=== PATIENT | female | born 1940 | race Caucasian/White ===

== ENCOUNTER 2024-12-05 09:00 | Inpatient (IN) ==
[2024-12-05] MEDS ORDERED: TYLENOL 325 MG TAB PO PRN (11:28)
[2024-12-05] MEDS ORDERED: LEVAQUIN PREMIX IV 500 MG 500 MG/100 ML BAG IV SCH (11:31)
[2024-12-05] MEDS: MIACALCIN INJ SC SCH (11:45)
[2024-12-05] MEDS ORDERED: CONSULT PHARMACY - POTASSIUM & MAGNESIUM XX SCH (12:00)
[2024-12-05] MEDS: APRESOLINE INJ 20 MG VIAL IVP PRN (12:32)
[2024-12-05] MEDS: VASOTEC INJ 2.5 MG VIAL IVP PRN (13:25)
[2024-12-05] MEDS ORDERED: NS 1,000 ML IV 1,000 ML ONE (14:01)
[2024-12-05] MEDS: VASOTEC INJ 2.5 MG VIAL ONE (14:17)
[2024-12-05] MEDS: NS 1,000 ML IV 1,000 ML IV SCH (14:17)
[2024-12-05] MEDS: MAGNESIUM SULFATE 1 GRAM/100 mL PREMIX 1 G/100 ML BAG IV NR (14:19)
[2024-12-05] MEDS: ZESTRIL TAB 20 MG PO SCH (14:44)
[2024-12-05] MEDS: K-RIDER 10 MEQ/100 ML WATER 10 MEQ/100 ML BAG IV NR (15:42)
[2024-12-05] MEDS: ZESTRIL TAB 20 MG ONE (15:50)
[2024-12-05] MEDS ORDERED: SENSIPAR PO SCH (21:00)
[2024-12-05] MEDS: ZOCOR TAB 20 MG PO SCH (22:48)
[2024-12-05] MEDS: COLACE CAP 100 MG PO SCH (22:49)
[2024-12-06] MEDS: TORADOL 15 MG VIAL IVP PRN (00:50)
[2024-12-06 05:43] LABS: BASOPHILS # (AUTO) 0.1 X10^3/uL (0.0-0.1); BASOPHILS % (AUTO) 0.7 % (0.2-1.0); EOSINOPHILS % (AUTO) 0.4 % (0.9-2.9); HEMATOCRIT 30.7 % (36.0-47.0); LYMPHOCYTES # (AUTO) 0.7 X10^3/uL (1.3-2.9); LYMPHOCYTES % (AUTO) 9.1 % (21.0-51.0); MEAN CORPUSCULAR HEMOGLOBIN 32.4 pg (27.0-34.0); MEAN CORPUSCULAR HGB CONC 35.7 g/dL (33.0-35.0); MEAN CORPUSCULAR VOLUME 90.8 fL (80.0-100.0); MEAN PLATELET VOLUME 8.9 fL (7.4-11.0); MONOCYTES # (AUTO) 0.6 x10^3/uL (0.3-0.8); MONOCYTES % (AUTO) 7.7 % (0.0-13.0); NEUTROPHILS % (AUTO) 82.1 % (42.0-75.0); PLATELET COUNT 214 X10^3/uL (150.0-450.0); RED BLOOD COUNT 3.38 X10^6/uL (3.5-5.4); WHITE BLOOD COUNT 7.4 X10^3/uL (3.6-10.0)
[2024-12-06 05:53] LABS: ALANINE AMINOTRANSFERASE 21 Units/L (12-78); ALBUMIN 2.5 g/dL (3.4-5.0); ALKALINE PHOSPHATASE 107 Units/L (46-116); ASPARTATE AMINO TRANSFERASE 13 Units/L (15-37); BLOOD UREA NITROGEN 24 mg/dL (7-18); CALCIUM 9.3 mg/dL (8.5-10.1); CARBON DIOXIDE 20.2 mmol/L (21-32); CHLORIDE 111 mmol/L (98-107); COR CA(FOR HYPOALB) 10.5 mg/dL (8.5-10.1); CREATININE 1.15 mg/dL (0.55-1.02); GLUCOSE 96 mg/dL (65-99); MAGNESIUM 2.1 mg/dL (2.0-2.9); POTASSIUM 3.8 mmol/L (3.5-5.1); SODIUM 142 mmol/L (136-145); TOTAL PROTEIN 4.9 g/dL (6.4-8.2); eGFR NON BLACK RACES 48 (>60)
[2024-12-06] MEDS: LOVENOX INJ 60 MG SYR SC SCH (08:26)
[2024-12-06] MEDS: LEVAQUIN PREMIX IV 750 MG 750 MG/150 ML BAG IV SCH (08:26)
[2024-12-06] MEDS: ZOLOFT PO SCH (08:27)
[2024-12-06] MEDS: NORVASC TAB 10 MG PO SCH (08:27)
[2024-12-06] MEDS: PEPCID 20 MG VIAL IVP SCH (08:28)
[2024-12-06] MEDS: TOPROL XL PO SCH (08:28)
[2024-12-06] MEDS: ZESTRIL TAB 20 MG ONE (10:08)
[2024-12-06] MEDS: SENSIPAR PO SCH (13:06)
[2024-12-06] MEDS ORDERED: MULTIHANCE INJ VIAL ONE (13:42)
--- NOTE | 2024-12-06 15:23 | MRI ---
EXAM: MRI BRAIN WITH AND WITHOUT CONTRAST HISTORY: AMS/POSSIBLE STROKE CONTRAST-MULTIHANCE 10CC INJECTED INTO LEFT AC ; COMPARISON: CT dated 12/03/2024. TECHNIQUE: Multiplanar multisequence MRI of the brain was performed with and without IV contrast. Informed written consent was obtained prior to contrast administration. FINDINGS: Multiple series degraded by patient motion artifact. No areas of restricted diffusion. No acute intracranial hemorrhage or extra-axial fluid collection. Moderate cerebral atrophy and chronic microvascular white matter disease. No enhancing intracranial abnormalities. No mass effect or midline shift. Major intracranial flow voids are preserved. Visualized paranasal sinuses are well-aerated. Bilateral mastoid effusions. IMPRESSION: 1. No acute intracranial abnormality. Negative for acute infarction or hemorrhage. 2. Moderate cerebral atrophy and chronic microvascular white matter disease. THIS IS AN ELECTRONICALLY VERIFIED FINAL REPORT 12/06/2024 3:20 PM - Electronically signed by Paulino Lucero MD
[2024-12-07] MEDS ORDERED: ZESTRIL TAB 20 MG ONE ×2 (07:24→20:05)
[2024-12-07 07:51] LABS: BASOPHILS # (AUTO) 0.1 X10^3/uL (0.0-0.1); BASOPHILS % (AUTO) 0.8 % (0.2-1.0); EOSINOPHILS # (AUTO) 0.1 x10^3/uL (0.0-0.2); EOSINOPHILS % (AUTO) 0.9 % (0.9-2.9); HEMATOCRIT 32.7 % (36.0-47.0); HEMOGLOBIN 11.6 g/dL (12.0-16.0); LYMPHOCYTES # (AUTO) 0.9 X10^3/uL (1.3-2.9); LYMPHOCYTES % (AUTO) 11.5 % (21.0-51.0); MEAN CORPUSCULAR HEMOGLOBIN 32.1 pg (27.0-34.0); MEAN CORPUSCULAR HGB CONC 35.5 g/dL (33.0-35.0); MEAN CORPUSCULAR VOLUME 90.4 fL (80.0-100.0); MEAN PLATELET VOLUME 8.9 fL (7.4-11.0); MONOCYTES # (AUTO) 0.5 x10^3/uL (0.3-0.8); MONOCYTES % (AUTO) 6.7 % (0.0-13.0); NEUTROPHILS # (AUTO) 6.2 x10^3/uL (2.2-4.8); NEUTROPHILS % (AUTO) 80.1 % (42.0-75.0); PLATELET COUNT 210 X10^3/uL (150.0-450.0); RED BLOOD COUNT 3.62 X10^6/uL (3.5-5.4); WHITE BLOOD COUNT 7.7 X10^3/uL (3.6-10.0)
[2024-12-07 08:03] LABS: ALANINE AMINOTRANSFERASE 22 Units/L (12-78); ALBUMIN 2.9 g/dL (3.4-5.0); ALKALINE PHOSPHATASE 114 Units/L (46-116); ASPARTATE AMINO TRANSFERASE 16 Units/L (15-37); BLOOD UREA NITROGEN 19 mg/dL (7-18); CALCIUM 8.6 mg/dL (8.5-10.1); CARBON DIOXIDE 18.8 mmol/L (21-32); CHLORIDE 114 mmol/L (98-107); COR CA(FOR HYPOALB) 9.5 mg/dL (8.5-10.1); CREATININE 0.98 mg/dL (0.55-1.02); GLUCOSE 91 mg/dL (65-99); POTASSIUM 3.5 mmol/L (3.5-5.1); SODIUM 145 mmol/L (136-145); TOTAL PROTEIN 5.4 g/dL (6.4-8.2); eGFR NON BLACK RACES 58 (>60)
[2024-12-07] MEDS: K-RIDER 10 MEQ/100 ML WATER 10 MEQ/100 ML BAG IV SCH (09:04)
[2024-12-07] MEDS: CONSULT PHARMACY - POTASSIUM & MAGNESIUM XX SCH (10:18)
[2024-12-07] MEDS: ROCEPHIN VIAL 1 GRAM 1 G in NS 100 ML IV 100 ML IV SCH (11:20)
[2024-12-07] MEDS: MAGNESIUM SULFATE 1 GRAM/100 mL PREMIX 1 G/100 ML BAG IV SCH (13:38)
--- NOTE | 2024-12-07 14:31 | PCM.PROG ---
Progress Note Progress Note for Day of Date of Exam: 12/07/24 Subjective Subjective: Patient seen at bedside, no acute events overnight. She is resting this morning. She did not eat much breakfast. Her BP has been elevated. She did take PO medications with apple sauce. MRI-brain did not show any acute changes. Her calcium level is normal. Reviewed tele-[place] recommendations. Labs/imaging reviewed: -WBC 7.7 Hgb11.6 Plt 210 K 3.5 Cr 0.98 Na 145 -MRI-brain reviewed -AIT UTI panel pending Plan: Continue current treatment. Appreciate [place] recommendations. Continue sensipar. Continue hydration. Replace electrolytes as per protocol. Continue IV Rocephin, f/u pending results. Monitor AM labs/imaging. Past Medical Family Social History Allergies: Allergies codeine Allergy (Verified 11/07/23 09:26) NAUSEA patient states it makes her sick Vital Signs and I&O's Vital Signs: Vital Signs Temperature 99 F Temperature 98.3 F Pulse Rate [Left Apical] 87 Pulse Rate [Left Apical] 88 Respiratory Rate 18 Respiratory Rate 18 Blood Pressure [Right Arm] 192/85 Blood Pressure [Right Arm] 171/85 Blood Pressure [Right Arm] 173/83 Blood Pressure [Left Arm] 160/78 Blood Pressure [Left Arm] 164/75 O2 Sat by Pulse Oximetry 96 O2 Sat by Pulse Oximetry 95 Intake and Output: Intake & Output 12/04/24 12/05/24 12/06/24 12/07/24 23:59 23:59 23:59 23:59 Intake Total 1748 / 1748 2286 / 2286 673 / 673 Balance 1748 / 1748 2286 / 2286 673 / 673 Physical Exam Oriented: Unable to test Throat: Normal Respiratory: Generalized and Diminished Cardiovascular: Normal Auscultation: Bowel Sounds: Normal Palpation: Normal Tenderness: Normal Skin: Decreased [place]urgur Musculoskeletal: Normal Psychiatric: Normal Mood Description: Calm Affect: Normal Speech Pattern: Delayed Laboratory and Diagnostics 12/07/24 07:42 12/07/24 07:42 Labs: Laboratory WBC 7.7 X10^3/uL (3.6-10.0) 12/07/24 07:42 RBC 3.62 X10^6/uL (3.5-5.4) 12/07/24 07:42 Hgb 11.6 g/dL (12.0-16.0) L 12/07/24 07:42 Hct 32.7 % (36.0-47.0) L 12/07/24 07:42 MCV 90.4 fL (80.0-100.0) 12/07/24 07:42 MCH 32.1 pg (27.0-34.0) 12/07/24 07:42 MCHC 35.5 g/dL (33.0-35.0) H 12/07/24 07:42 RDW 13.0 % (11.6-16.5) 12/07/24 07:42 Plt Count 210 X10^3/uL (150.0-450.0) 12/07/24 07:42 MPV 8.9 fL (7.4-11.0) 12/07/24 07:42 Neut % (Auto) 80.1 % (42.0-75.0) H 12/07/24 07:42 Lymph % (Auto) 11.5 % (21.0-51.0) L 12/07/24 07:42 [place] % (Auto) 6.7 % (0.0-13.0) 12/07/24 07:42 Eos % (Auto) 0.9 % (0.9-2.9) 12/07/24 07:42 Baso % (Auto) 0.8 % (0.2-1.0) 12/07/24 07:42 Neut # (Auto) 6.2 x10^3/uL (2.2-4.8) H 12/07/24 07:42 Lymph # (Auto) 0.9 X10^3/uL (1.3-2.9) L 12/07/24 07:42 [place] # (Auto) 0.5 x10^3/uL (0.3-0.8) 12/07/24 07:42 Eos # (Auto) 0.1 x10^3/uL (0.0-0.2) 12/07/24 07:42 Baso # (Auto) 0.1 X10^3/uL (0.0-0.1) 12/07/24 07:42 Absolute Nucleated RBC 0.0 /100WBC 12/07/24 07:42 Sodium 145 mmol/L (136-145) 12/07/24 07:42 Corrected Sodium TNP 12/07/24 07:42 Potassium 3.5 mmol/L (3.5-5.1) 12/07/24 07:42 Chloride 114 mmol/L (98-107) H 12/07/24 07:42 Carbon Dioxide 18.8 mmol/L (21-32) L 12/07/24 07:42 BUN 19 mg/dL (7-18) H 12/07/24 07:42 Creatinine 0.98 mg/dL (0.55-1.02) 12/07/24 07:42 Est GFR (MDRD) Af Amer > 60 (>60) 12/07/24 07:42 Est GFR (MDRD) Non-Af 58 (>60) L 12/07/24 07:42 Glucose 91 mg/dL (65-99) 12/07/24 07:42 Calcium 8.6 mg/dL (8.5-10.1) 12/07/24 07:42 Corrected Calcium 9.5 mg/dL (8.5-10.1) 12/07/24 07:42 Phosphorus 1.7 mg/dL (2.6-4.7) L 12/07/24 07:42 Magnesium 1.8 mg/dL (2.0-2.9) L 12/07/24 07:42 Total Bilirubin 0.30 mg/dL (0.2-1.0) 12/07/24 07:42 AST 16 Units/L (15-37) 12/07/24 07:42 ALT 22 Units/L (12-78) 12/07/24 07:42 Alkaline Phosphatase 114 Units/L (46-116) 12/07/24 07:42 Total Protein 5.4 g/dL (6.4-8.2) L 12/07/24 07:42 Albumin 2.9 g/dL (3.4-5.0) L 12/07/24 07:42 Globulin 2.5 g/dL (2.5-4.5) 12/07/24 07:42 Albumin/Globulin Ratio 1.2 Ratio (1.1-2.1) 12/07/24 07:42 Plan (1) Hypercalcemia: Status: Acute (2) Generalized weakness: Status: Acute (3) Vascular dementia: Status: Chronic Qualifiers: Dementia severity: unspecified severity Dementia behavioral or psychological symptom: without behavioral, psychotic, or mood disturbance or anxiety Qualified Code(s): F01.50 - Vascular dementia, unspecified severity, without behavioral disturbance, psychotic disturbance, mood disturbance, and anxiety (4) AMS (altered mental status): Status: Acute Qualifiers: Altered mental status type: transient alteration of awareness Qualified Code(s): R40.4 - Transient alteration of awareness
[2024-12-07] MEDS ORDERED: BUTT CREAM (COMPOUND) TOP PRN (14:33)
[2024-12-07] MEDS: ZESTRIL TAB 20 MG PO SCH (21:08)
[2024-12-08 05:07] LABS: HEMATOCRIT 30.9 % (36.0-47.0); HEMOGLOBIN 10.9 g/dL (12.0-16.0); MEAN CORPUSCULAR HEMOGLOBIN 32.3 pg (27.0-34.0); RED BLOOD COUNT 3.38 X10^6/uL (3.5-5.4)
[2024-12-08 05:16] LABS: BASOPHILS % (AUTO) 0.4 % (0.2-1.0); EOSINOPHILS # (AUTO) 0.1 x10^3/uL (0.0-0.2); EOSINOPHILS % (AUTO) 2.1 % (0.9-2.9); LYMPHOCYTES # (AUTO) 0.8 X10^3/uL (1.3-2.9); LYMPHOCYTES % (AUTO) 11.3 % (21.0-51.0); MEAN CORPUSCULAR HGB CONC 35.3 g/dL (33.0-35.0); MEAN CORPUSCULAR VOLUME 91.4 fL (80.0-100.0); MEAN PLATELET VOLUME 9.5 fL (7.4-11.0); MONOCYTES # (AUTO) 0.5 x10^3/uL (0.3-0.8); MONOCYTES % (AUTO) 7.2 % (0.0-13.0); NEUTROPHILS # (AUTO) 5.5 x10^3/uL (2.2-4.8); PLATELET COUNT 199 X10^3/uL (150.0-450.0)
[2024-12-08 05:19] LABS: ALANINE AMINOTRANSFERASE 19 Units/L (12-78); ALBUMIN 2.6 g/dL (3.4-5.0); ALKALINE PHOSPHATASE 100 Units/L (46-116); ASPARTATE AMINO TRANSFERASE 15 Units/L (15-37); BLOOD UREA NITROGEN 17 mg/dL (7-18); CALCIUM 7.8 mg/dL (8.5-10.1); COR CA(FOR HYPOALB) 8.9 mg/dL (8.5-10.1); CREATININE 0.88 mg/dL (0.55-1.02); GLUCOSE 83 mg/dL (65-99); MAGNESIUM 2.2 mg/dL (2.0-2.9); PHOSPHORUS 1.8 mg/dL (2.6-4.7); POTASSIUM 3.5 mmol/L (3.5-5.1); SODIUM 145 mmol/L (136-145); eGFR NON BLACK RACES > 60 (>60)
[2024-12-08 05:24] LABS: CHLORIDE 115 mmol/L (98-107)
[2024-12-08] MEDS ORDERED: ZESTRIL TAB 20 MG ONE ×2 (08:26→19:24)
--- NOTE | 2024-12-08 11:46 | PCM.PROG ---
Progress Note Progress Note for Day of Date of Exam: 12/08/24 Subjective Subjective: Patient seen at bedside, no acute events overnight. She is feeling better. She has not been eating much. Discussed with patient about eating. She is willing to try Ensure. Her calcium level is normal. Labs/imaging reviewed: -WBC 7 Hgb 10.9 Plt 199 K 3.5 Cr 0.88 Na 145 Chloride 115 -MRI-brain reviewed -AIT UTI panel pending Plan: Continue current treatment. Continue sensipar. DC fluids. Add Ensure. Replace electrolytes as per protocol. Continue IV Rocephin, f/u pending results. Monitor AM labs/imaging. Past Medical Family Social History Allergies: Allergies codeine Allergy (Verified 11/07/23 09:26) NAUSEA patient states it makes her sick Vital Signs and I&O's Vital Signs: Vital Signs Temperature 98.1 F Pulse Rate [Left Apical] 75 Respiratory Rate 18 Blood Pressure [Right Arm] 128/69 O2 Sat by Pulse Oximetry 95 Intake and Output: Intake & Output 12/05/24 12/06/24 12/07/24 12/08/24 23:59 23:59 23:59 23:59 Intake Total 1748 / 1748 2286 / 2286 1159 / 1159 864 / 864 Balance 1748 / 1748 2286 / 2286 1159 / 1159 864 / 864 Physical Exam Oriented: Normal Throat: Normal Respiratory: Generalized and Diminished Cardiovascular: Normal Auscultation: Bowel Sounds: Normal Palpation: Normal Tenderness: Normal Skin: Decreased [place]urgur Musculoskeletal: Normal Psychiatric: Normal Mood Description: Calm Affect: Normal Speech Pattern: Delayed Laboratory and Diagnostics 12/08/24 04:35 12/08/24 04:35 Labs: Laboratory WBC 7.0 X10^3/uL (3.6-10.0) 12/08/24 04:35 RBC 3.38 X10^6/uL (3.5-5.4) L 12/08/24 04:35 Hgb 10.9 g/dL (12.0-16.0) L 12/08/24 04:35 Hct 30.9 % (36.0-47.0) L 12/08/24 04:35 MCV 91.4 fL (80.0-100.0) 12/08/24 04:35 MCH 32.3 pg (27.0-34.0) 12/08/24 04:35 MCHC 35.3 g/dL (33.0-35.0) H 12/08/24 04:35 RDW 13.0 % (11.6-16.5) 12/08/24 04:35 Plt Count 199 X10^3/uL (150.0-450.0) 12/08/24 04:35 MPV 9.5 fL (7.4-11.0) 12/08/24 04:35 Neut % (Auto) 79.0 % (42.0-75.0) H 12/08/24 04:35 Lymph % (Auto) 11.3 % (21.0-51.0) L 12/08/24 04:35 [place] % (Auto) 7.2 % (0.0-13.0) 12/08/24 04:35 Eos % (Auto) 2.1 % (0.9-2.9) 12/08/24 04:35 Baso % (Auto) 0.4 % (0.2-1.0) 12/08/24 04:35 Neut # (Auto) 5.5 x10^3/uL (2.2-4.8) H 12/08/24 04:35 Lymph # (Auto) 0.8 X10^3/uL (1.3-2.9) L 12/08/24 04:35 [place] # (Auto) 0.5 x10^3/uL (0.3-0.8) 12/08/24 04:35 Eos # (Auto) 0.1 x10^3/uL (0.0-0.2) 12/08/24 04:35 Baso # (Auto) 0.0 X10^3/uL (0.0-0.1) 12/08/24 04:35 Absolute Nucleated RBC 0.1 /100WBC 12/08/24 04:35 Sodium 145 mmol/L (136-145) 12/08/24 04:35 Corrected Sodium TNP 12/08/24 04:35 Potassium 3.5 mmol/L (3.5-5.1) 12/08/24 04:35 Chloride 115 mmol/L (98-107) H* 12/08/24 04:35 Carbon Dioxide 17.0 mmol/L (21-32) L 12/08/24 04:35 BUN 17 mg/dL (7-18) 12/08/24 04:35 Creatinine 0.88 mg/dL (0.55-1.02) 12/08/24 04:35 Est GFR (MDRD) Af Amer > 60 (>60) 12/08/24 04:35 Est GFR (MDRD) Non-Af > 60 (>60) 12/08/24 04:35 Glucose 83 mg/dL (65-99) 12/08/24 04:35 Calcium 7.8 mg/dL (8.5-10.1) L 12/08/24 04:35 Corrected Calcium 8.9 mg/dL (8.5-10.1) 12/08/24 04:35 Phosphorus 1.8 mg/dL (2.6-4.7) L 12/08/24 04:35 Magnesium 2.2 mg/dL (2.0-2.9) 12/08/24 04:35 Total Bilirubin 0.30 mg/dL (0.2-1.0) 12/08/24 04:35 AST 15 Units/L (15-37) 12/08/24 04:35 ALT 19 Units/L (12-78) 12/08/24 04:35 Alkaline Phosphatase 100 Units/L (46-116) 12/08/24 04:35 Total Protein 5.0 g/dL (6.4-8.2) L 12/08/24 04:35 Albumin 2.6 g/dL (3.4-5.0) L 12/08/24 04:35 Globulin 2.4 g/dL (2.5-4.5) L 12/08/24 04:35 Albumin/Globulin Ratio 1.1 Ratio (1.1-2.1) 12/08/24 04:35 Plan (1) Hypercalcemia: Status: Acute (2) Generalized weakness: Status: Acute (3) Vascular dementia: Status: Chronic Qualifiers: Dementia behavioral or psychological symptom: without behavioral, psychotic, or mood disturbance or anxiety Dementia severity: unspecified severity Qualified Code(s): F01.50 - Vascular dementia, unspecified severity, without behavioral disturbance, psychotic disturbance, mood disturbance, and anxiety (4) AMS (altered mental status): Status: Acute Qualifiers: Altered mental status type: transient alteration of awareness Qualified Code(s): R40.4 - Transient alteration of awareness
[2024-12-09 05:57] LABS: BASOPHILS % (AUTO) 0.6 % (0.2-1.0); EOSINOPHILS # (AUTO) 0.2 x10^3/uL (0.0-0.2); EOSINOPHILS % (AUTO) 4.6 % (0.9-2.9); HEMATOCRIT 29.9 % (36.0-47.0); HEMOGLOBIN 10.6 g/dL (12.0-16.0); LYMPHOCYTES # (AUTO) 0.9 X10^3/uL (1.3-2.9); MEAN CORPUSCULAR HGB CONC 35.2 g/dL (33.0-35.0); MEAN CORPUSCULAR VOLUME 90.9 fL (80.0-100.0); MEAN PLATELET VOLUME 9.7 fL (7.4-11.0); MONOCYTES # (AUTO) 0.4 x10^3/uL (0.3-0.8); MONOCYTES % (AUTO) 7.9 % (0.0-13.0); NEUTROPHILS # (AUTO) 3.8 x10^3/uL (2.2-4.8); NEUTROPHILS % (AUTO) 70.9 % (42.0-75.0); PLATELET COUNT 180 X10^3/uL (150.0-450.0); RED BLOOD COUNT 3.29 X10^6/uL (3.5-5.4); RED CELL DISTRIBUTION WIDTH 12.9 % (11.6-16.5); WHITE BLOOD COUNT 5.4 X10^3/uL (3.6-10.0)
[2024-12-09 06:07] LABS: ALANINE AMINOTRANSFERASE 17 Units/L (12-78); ALBUMIN 2.5 g/dL (3.4-5.0); ALKALINE PHOSPHATASE 96 Units/L (46-116); ASPARTATE AMINO TRANSFERASE 15 Units/L (15-37); BLOOD UREA NITROGEN 15 mg/dL (7-18); CALCIUM 7.5 mg/dL (8.5-10.1); CARBON DIOXIDE 23.6 mmol/L (21-32); CHLORIDE 113 mmol/L (98-107); COR CA(FOR HYPOALB) 8.7 mg/dL (8.5-10.1); CREATININE 0.83 mg/dL (0.55-1.02); GLUCOSE 86 mg/dL (65-99); MAGNESIUM 1.9 mg/dL (2.0-2.9); POTASSIUM 3.2 mmol/L (3.5-5.1); SODIUM 142 mmol/L (136-145); TOTAL PROTEIN 4.8 g/dL (6.4-8.2); eGFR NON BLACK RACES > 60 (>60)
[2024-12-09] MEDS ORDERED: CONSULT PHARMACY - POTASSIUM & MAGNESIUM XX SCH ×2 (07:00→08:00)
[2024-12-09] MEDS ORDERED: ZESTRIL TAB 20 MG ONE ×2 (09:33→19:34)
[2024-12-09] MEDS: MAG-OX TAB PO SCH (09:39)
[2024-12-09] MEDS: POTASSIUM CHLORIDE LIQ PO SCH (09:40)
[2024-12-09] MEDS: VORICONAZOLE 400 MG in NS 100 ML IV 100 ML IV SCH (13:49)
[2024-12-09] MEDS: POTASSIUM PHOSPHATE IV ONE (16:17)
[2024-12-09] MEDS: NS IV ONE (16:17)
[2024-12-10] MEDS: NS 250 ML IV 250 ML IV PRN (05:10)
[2024-12-10 05:55] LABS: BASOPHILS % (AUTO) 0.3 % (0.2-1.0); EOSINOPHILS # (AUTO) 0.2 x10^3/uL (0.0-0.2); EOSINOPHILS % (AUTO) 2.8 % (0.9-2.9); HEMATOCRIT 34.2 % (36.0-47.0); HEMOGLOBIN 12.2 g/dL (12.0-16.0); LYMPHOCYTES % (AUTO) 15.4 % (21.0-51.0); MEAN CORPUSCULAR HEMOGLOBIN 32.2 pg (27.0-34.0); MEAN CORPUSCULAR HGB CONC 35.6 g/dL (33.0-35.0); MEAN CORPUSCULAR VOLUME 90.7 fL (80.0-100.0); MEAN PLATELET VOLUME 9.6 fL (7.4-11.0); MONOCYTES # (AUTO) 0.6 x10^3/uL (0.3-0.8); MONOCYTES % (AUTO) 10.1 % (0.0-13.0); NEUTROPHILS # (AUTO) 4.5 x10^3/uL (2.2-4.8); NEUTROPHILS % (AUTO) 71.4 % (42.0-75.0); PLATELET COUNT 189 X10^3/uL (150.0-450.0); RED BLOOD COUNT 3.77 X10^6/uL (3.5-5.4); WHITE BLOOD COUNT 6.4 X10^3/uL (3.6-10.0)
[2024-12-10 06:03] LABS: ALANINE AMINOTRANSFERASE 21 Units/L (12-78); ALKALINE PHOSPHATASE 114 Units/L (46-116); ASPARTATE AMINO TRANSFERASE 17 Units/L (15-37); BLOOD UREA NITROGEN 10 mg/dL (7-18); CALCIUM 7.5 mg/dL (8.5-10.1); CARBON DIOXIDE 19.9 mmol/L (21-32); CHLORIDE 110 mmol/L (98-107); COR CA(FOR HYPOALB) 8.3 mg/dL (8.5-10.1); CREATININE 0.76 mg/dL (0.55-1.02); GLUCOSE 85 mg/dL (65-99); MAGNESIUM 1.8 mg/dL (2.0-2.9); POTASSIUM 4.3 mmol/L (3.5-5.1); SODIUM 142 mmol/L (136-145); TOTAL PROTEIN 5.6 g/dL (6.4-8.2); eGFR NON BLACK RACES > 60 (>60)
[2024-12-10] MEDS ORDERED: CONSULT PHARMACY - POTASSIUM & MAGNESIUM XX SCH (07:00)
[2024-12-10 08:07] VITALS: BP 158/74; PULSE 76; RESP 18; TEMP 98.2; O2SAT 96
[2024-12-10] MEDS ORDERED: ZESTRIL TAB 20 MG ONE (08:31)
--- NOTE | 2024-12-10 08:56 | PCM.PROG ---
Progress Note Progress Note for Day of Date of Exam: 12/09/24 Subjective Subjective: Patient seen at bedside, no acute events overnight. She is feeling better. She is sitting up in the recliner. Her appetite has improved. She did drink Ensure. She also worked with PT/OT this morning. CM working on rehab placement. Labs/imaging reviewed: -WBC 5.4 Hgb 10.6 Plt 180 K 3.2 Cr 0.83 Mag 1.9 -MRI-brain reviewed -AIT UTI : Rosalee Krusei Plan: Add voriconazole for UTI. Replace electrolytes as per protocol. Replace phosphorus. Continue sensipar, monitor Ca levels. Continue home medications. PT/OT as tolerated. CM working on placement to [facility]. Patient will need outpatient follow up with Endocrine. Monitor AM labs/imaging. Past Medical Family Social History Allergies: Allergies codeine Allergy (Verified 11/07/23 09:26) NAUSEA patient states it makes her sick Vital Signs and I&O's Vital Signs: Vital Signs Temperature 98.2 F Temperature 97.7 F Pulse Rate [Left Apical] 76 Pulse Rate [Left Apical] 73 Respiratory Rate 18 Respiratory Rate 17 Blood Pressure [Right Arm] 158/74 Blood Pressure [Right Arm] 152/74 O2 Sat by Pulse Oximetry 96 O2 Sat by Pulse Oximetry 97 Intake and Output: Intake & Output 12/07/24 12/08/24 12/09/24 12/10/24 23:59 23:59 23:59 23:59 Intake Total 1159 / 1159 1341 / 1341 2159 / 2159 502 / 502 Balance 1159 / 1159 1341 / 1341 2159 / 2159 502 / 502 Physical Exam Oriented: Normal Throat: Normal Respiratory: Generalized and Diminished Cardiovascular: Normal Auscultation: Bowel Sounds: Normal Palpation: Normal Tenderness: Normal Skin: Decreased [place] Musculoskeletal: Normal Psychiatric: Normal Mood Description: Calm Affect: Normal Speech Pattern: Clear and Delayed Laboratory and Diagnostics 12/10/24 05:10 12/10/24 05:10 Labs: Laboratory WBC 6.4 X10^3/uL (3.6-10.0) 12/10/24 05:10 RBC 3.77 X10^6/uL (3.5-5.4) 12/10/24 05:10 Hgb 12.2 g/dL (12.0-16.0) 12/10/24 05:10 Hct 34.2 % (36.0-47.0) L 12/10/24 05:10 MCV 90.7 fL (80.0-100.0) 12/10/24 05:10 MCH 32.2 pg (27.0-34.0) 12/10/24 05:10 MCHC 35.6 g/dL (33.0-35.0) H 12/10/24 05:10 RDW 13.0 % (11.6-16.5) 12/10/24 05:10 Plt Count 189 X10^3/uL (150.0-450.0) 12/10/24 05:10 MPV 9.6 fL (7.4-11.0) 12/10/24 05:10 Neut % (Auto) 71.4 % (42.0-75.0) 12/10/24 05:10 Lymph % (Auto) 15.4 % (21.0-51.0) L 12/10/24 05:10 [place] % (Auto) 10.1 % (0.0-13.0) 12/10/24 05:10 Eos % (Auto) 2.8 % (0.9-2.9) 12/10/24 05:10 Baso % (Auto) 0.3 % (0.2-1.0) 12/10/24 05:10 Neut # (Auto) 4.5 x10^3/uL (2.2-4.8) 12/10/24 05:10 Lymph # (Auto) 1.0 X10^3/uL (1.3-2.9) L 12/10/24 05:10 [place] # (Auto) 0.6 x10^3/uL (0.3-0.8) 12/10/24 05:10 Eos # (Auto) 0.2 x10^3/uL (0.0-0.2) 12/10/24 05:10 Baso # (Auto) 0.0 X10^3/uL (0.0-0.1) 12/10/24 05:10 Absolute Nucleated RBC 0.1 /100WBC 12/10/24 05:10 Sodium 142 mmol/L (136-145) 12/10/24 05:10 Corrected Sodium TNP 12/10/24 05:10 Potassium 4.3 mmol/L (3.5-5.1) 12/10/24 05:10 Chloride 110 mmol/L (98-107) H 12/10/24 05:10 Carbon Dioxide 19.9 mmol/L (21-32) L 12/10/24 05:10 BUN 10 mg/dL (7-18) 12/10/24 05:10 Creatinine 0.76 mg/dL (0.55-1.02) 12/10/24 05:10 Est GFR (MDRD) Af Amer > 60 (>60) 12/10/24 05:10 Est GFR (MDRD) Non-Af > 60 (>60) 12/10/24 05:10 Glucose 85 mg/dL (65-99) 12/10/24 05:10 POC Glucose (mg/dL) 113 mg/dL (65-99) H 12/09/24 12:22 Calcium 7.5 mg/dL (8.5-10.1) L 12/10/24 05:10 Corrected Calcium 8.3 mg/dL (8.5-10.1) L 12/10/24 05:10 Phosphorus 1.8 mg/dL (2.6-4.7) L 12/08/24 04:35 Magnesium 1.8 mg/dL (2.0-2.9) L 12/10/24 05:10 Total Bilirubin 0.30 mg/dL (0.2-1.0) 12/10/24 05:10 AST 17 Units/L (15-37) 12/10/24 05:10 ALT 21 Units/L (12-78) 12/10/24 05:10 Alkaline Phosphatase 114 Units/L (46-116) 12/10/24 05:10 Total Protein 5.6 g/dL (6.4-8.2) L 12/10/24 05:10 Albumin 3.0 g/dL (3.4-5.0) L 12/10/24 05:10 Globulin 2.6 g/dL (2.5-4.5) 12/10/24 05:10 Albumin/Globulin Ratio 1.2 Ratio (1.1-2.1) 12/10/24 05:10 Infect Dis PCR Plus See scanned report 12/05/24 16:45 Plan (1) Hypercalcemia: Status: Acute (2) Generalized weakness: Status: Acute (3) Vascular dementia: Status: Chronic Qualifiers: Dementia behavioral or psychological symptom: without behavioral, psychotic, or mood disturbance or anxiety Dementia severity: unspecified severity Qualified Code(s): F01.50 - Vascular dementia, unspecified severity, without behavioral disturbance, psychotic disturbance, mood disturbance, and anxiety (4) AMS (altered mental status): Status: Acute Qualifiers: Altered mental status type: transient alteration of awareness Qualified Code(s): R40.4 - Transient alteration of awareness (5) Hyperparathyroidism: Status: Acute (6) Hypomagnesemia: Status: Acute (7) Hypophosphatemia: Status: Acute
[2024-12-10] MEDS: VORICONAZOLE 200 MG in NS 50 ML IV 50 ML IV SCH (09:37)
[2024-12-10] MEDS: MAG-OX TAB PO SCH (09:38)
[2024-12-11] MEDS ORDERED: SENSIPAR PO SCH (09:00)
--- NOTE | 2024-12-11 16:31 | PCM.PROG ---
Progress Note Progress Note for Day of Date of Exam: 12/06/24 Subjective Subjective: Patient resting in bed. No acute events overnight. She is more alert and is tolerating a little po intake compared to before. Labs/imaging reviewed: - WBC 7.4, hemoglobin 11, platelets 214, sodium 142, potassium 3.8, creatinine 1.15, glucose 96, calcium 9.3, corrected calcium 10.5. -MRI-brain pending -AIT UTI : pending Plan: Continue sensipar, monitor Ca levels when are gradually decreasing. Continue Rocephin pending cultures. Continue home medications. PT/OT as tolerated. Otherwise continue current treatment plan. Monitor AM labs/imaging. Past Medical Family Social History Allergies: Allergies codeine Allergy (Verified 11/07/23 09:26) NAUSEA patient states it makes her sick Review of Systems ROS changes noted: see HPI Vital Signs and I&O's Intake and Output: Intake & Output 12/08/24 12/09/24 12/10/24 12/11/24 23:59 23:59 23:59 23:59 Intake Total 1341 / 1341 2159 / 2159 502 / 502 Balance 1341 / 1341 2159 / 2159 502 / 502 Physical Exam Oriented: Normal Throat: Normal Respiratory: Generalized and Diminished Cardiovascular: Normal Auscultation: Bowel Sounds: Normal Tenderness: Normal Skin: Decreased [place] Musculoskeletal: Normal Psychiatric: Normal Mood Description: Calm Affect: Normal Speech Pattern: Clear and Delayed Laboratory and Diagnostics 12/10/24 05:10 12/10/24 05:10 Labs: Laboratory WBC 6.4 X10^3/uL (3.6-10.0) 12/10/24 05:10 RBC 3.77 X10^6/uL (3.5-5.4) 12/10/24 05:10 Hgb 12.2 g/dL (12.0-16.0) 12/10/24 05:10 Hct 34.2 % (36.0-47.0) L 12/10/24 05:10 MCV 90.7 fL (80.0-100.0) 12/10/24 05:10 MCH 32.2 pg (27.0-34.0) 12/10/24 05:10 MCHC 35.6 g/dL (33.0-35.0) H 12/10/24 05:10 RDW 13.0 % (11.6-16.5) 12/10/24 05:10 Plt Count 189 X10^3/uL (150.0-450.0) 12/10/24 05:10 MPV 9.6 fL (7.4-11.0) 12/10/24 05:10 Neut % (Auto) 71.4 % (42.0-75.0) 12/10/24 05:10 Lymph % (Auto) 15.4 % (21.0-51.0) L 12/10/24 05:10 [place] % (Auto) 10.1 % (0.0-13.0) 12/10/24 05:10 Eos % (Auto) 2.8 % (0.9-2.9) 12/10/24 05:10 Baso % (Auto) 0.3 % (0.2-1.0) 12/10/24 05:10 Neut # (Auto) 4.5 x10^3/uL (2.2-4.8) 12/10/24 05:10 Lymph # (Auto) 1.0 X10^3/uL (1.3-2.9) L 12/10/24 05:10 [place] # (Auto) 0.6 x10^3/uL (0.3-0.8) 12/10/24 05:10 Eos # (Auto) 0.2 x10^3/uL (0.0-0.2) 12/10/24 05:10 Baso # (Auto) 0.0 X10^3/uL (0.0-0.1) 12/10/24 05:10 Absolute Nucleated RBC 0.1 /100WBC 12/10/24 05:10 Sodium 142 mmol/L (136-145) 12/10/24 05:10 Corrected Sodium TNP 12/10/24 05:10 Potassium 4.3 mmol/L (3.5-5.1) 12/10/24 05:10 Chloride 110 mmol/L (98-107) H 12/10/24 05:10 Carbon Dioxide 19.9 mmol/L (21-32) L 12/10/24 05:10 BUN 10 mg/dL (7-18) 12/10/24 05:10 Creatinine 0.76 mg/dL (0.55-1.02) 12/10/24 05:10 Est GFR (MDRD) Af Amer > 60 (>60) 12/10/24 05:10 Est GFR (MDRD) Non-Af > 60 (>60) 12/10/24 05:10 Glucose 85 mg/dL (65-99) 12/10/24 05:10 POC Glucose (mg/dL) 113 mg/dL (65-99) H 12/09/24 12:22 Calcium 7.5 mg/dL (8.5-10.1) L 12/10/24 05:10 Corrected Calcium 8.3 mg/dL (8.5-10.1) L 12/10/24 05:10 Phosphorus 2.8 mg/dL (2.6-4.7) 12/10/24 05:10 Magnesium 1.8 mg/dL (2.0-2.9) L 12/10/24 05:10 Total Bilirubin 0.30 mg/dL (0.2-1.0) 12/10/24 05:10 AST 17 Units/L (15-37) 12/10/24 05:10 ALT 21 Units/L (12-78) 12/10/24 05:10 Alkaline Phosphatase 114 Units/L (46-116) 12/10/24 05:10 Total Protein 5.6 g/dL (6.4-8.2) L 12/10/24 05:10 Albumin 3.0 g/dL (3.4-5.0) L 12/10/24 05:10 Globulin 2.6 g/dL (2.5-4.5) 12/10/24 05:10 Albumin/Globulin Ratio 1.2 Ratio (1.1-2.1) 12/10/24 05:10 Infect Dis PCR Plus See scanned report 12/05/24 16:45 Plan (1) Hypercalcemia: Status: Acute (2) Generalized weakness: Status: Acute (3) Vascular dementia: Status: Chronic Qualifiers: Dementia severity: unspecified severity Dementia behavioral or psychological symptom: without behavioral, psychotic, or mood disturbance or anxiety Qualified Code(s): F01.50 - Vascular dementia, unspecified severity, without behavioral disturbance, psychotic disturbance, mood disturbance, and anxiety (4) AMS (altered mental status): Status: Acute Qualifiers: Altered mental status type: transient alteration of awareness Qualified Code(s): R40.4 - Transient alteration of awareness (5) Hyperparathyroidism: Status: Acute (6) Hypomagnesemia: Status: Acute (7) Hypophosphatemia: Status: Acute
== END 2024-12-10 12:00 | DRG 690 ==
LOC: MED/SURG 09:00 → UNDODISIN 12-10 10:40
PROVIDERS: ADMIT Family Medicine; ATTEND Family Medicine
DX: I10 Essential (primary) hypertension; F01.50 Vascular dementia, unspecified severity, without behavioral disturbance, psychotic disturbance, mood disturbance, and anxiety; E21.2 Other hyperparathyroidism; G31.89 Other specified degenerative diseases of nervous system; R53.1 Weakness; R26.89 Other abnormalities of gait and mobility; B37.89 Other sites of candidiasis; E21.1 Secondary hyperparathyroidism, not elsewhere classified; R40.4 Transient alteration of awareness; N39.0 Urinary tract infection, site not specified; D35.1 Benign neoplasm of parathyroid gland